=== PATIENT | male | born 1965 | race Caucasian/White ===

== ENCOUNTER 2017-10-29 11:10 | Day surgery (SDC) | payer BC ==
[2017-10-26 15:23] VITALS: BMI 27.8
[~2017-10-29 11:10] MED LIST: LACTATED RINGERS 1,000 ML IV SCH
[2017-10-29 11:28] VITALS: TEMP 98.4
[2017-10-29] MEDS ORDERED: LIDOCAINE 1% 20 ML VIAL (10MG/ML) FOR IV START INTRADERMA ONE (11:33)
[2017-10-29] MEDS ORDERED: PROPOFOL 10 MG/ML 20 ML VIAL IV ONE (11:34)
[2017-10-29] MEDS ORDERED: LIDOCAINE 1% INJ 10MG/ML (20 ML MDV) ONE (11:34)
--- NOTE | 2017-10-29 12:03 | P.PCN ---
Date of Procedure: 10/29/17 Procedure(s) Performed: Procedure: Total colonoscopy and polypectomy. Preoperative diagnosis: Screening for neoplasia. Postoperative diagnosis: 1. Small/Diminutive polyp splenic flexure snared, but no large polyps or cancer. Preparation: HalfLytely prep. Sedation: Was provided by anesthesia. Brief clinical history: The patient is a 52-year-old male who is scheduled for this evaluation for screening for neoplasia age being his risk factor. There is no family history of colon cancer. At this time, he has no abdominal complaints, bleeding or anemia. This would be his first colonoscopy. Procedure: With the patient on his left lateral decubitus position and after informed consent and adequate sedation, the perianal area was inspected and it did not show any fissures or fistulas. There were no masses felt on digital rectal examination. The Olympus CFQ 160L video colonoscope was then inserted in the rectum in the usual fashion and advanced to the cecum. There was a small /diminutive polyp around the splenic flexure which was snared and retrieved by suction but there were no large polyps or cancer. There was no obvious diverticular disease or other pathology. The mucosa appeared healthy. I retroflexed the endoscope in the rectum before the endoscope was withdrawn. The patient tolerated the procedure well. Plan: The patient was reassured. He will follow up with you as planned and I recommended repeat exam in 5 years.
[2017-10-29 12:18] VITALS: BP 117/76; PULSE 73; RESP 18
== END 2017-10-29 12:38 | disposition home or self-care (01) ==
LOC: ORWHC2ENDO 11:10
DX: Z12.11 Encounter for screening for malignant neoplasm of colon (principal); D12.3 Benign neoplasm of transverse colon; K21.9 Gastro-esophageal reflux disease without esophagitis
CPT/HCPCS: 88305; 45385; J2001; J2704

== ENCOUNTER → 2019-06-01 | Outpatient (CLI) | payer BC ==
[2019-06-01 18:03] LABS: Shrimp IgE 0.12 kU/L
[2019-06-01 19:36] LABS: Hepatitis A Antibody IgM Non-Reactive (Non-Reactive); Hepatitis B Core IgM Non-Reactive (Non-Reactive); Hepatitis B Surface Antigen Non-Reactive (Non-Reactive); Hepatitis C IgG Antibody Non-Reactive (Non-Reactive)
[2019-06-02 04:18] LABS: Gliadin AB IgA, Deaminated NEGATIVE (NEGATIVE); Gliadin AB IgA, Unit <0.2 U/mL; Gliadin AB IgG, Deaminated NEGATIVE (NEGATIVE)
[2019-06-02 14:00] LABS: Crab IgE 0.12 kU/L (<0.10); Crab IgE Class CLASS 0/1
[2019-06-02 14:01] LABS: Pork IgE Class CLASS 0
[2019-06-02 14:02] LABS: Beef IgE <0.10 kU/L (<0.10); Beef IgE Class CLASS 0; Salmon IgE <0.10 kU/L (<0.10); Salmon IgE Class CLASS 0
[2019-06-02 14:03] LABS: Gluten IgE Class CLASS 0; Yeast Bakers/Brew IgE 0.12 kU/L (<0.10)
[2019-06-02 14:04] LABS: Chicken IgE Class CLASS 0; Lobster IgE Class CLASS 0/1
[2019-06-02 14:05] LABS: Avocado Class CLASS 0; Banana IgE Class CLASS 0/1; Cow's Milk IgE Class CLASS 0; Egg White IgE <0.10 kU/L (<0.10); Hazelnut IgE <0.10 kU/L (<0.10); Hazelnut IgE Class CLASS 0; Kiwi IgE <0.10 kU/L (<0.10); Kiwi IgE Class CLASS 0; Peanut IgE <0.10 kU/L (<0.10); Potato IgE <0.10 kU/L (<0.10); Potato IgE Class CLASS 0; Soybean IgE <0.10 kU/L (<0.10)
[2019-06-02 14:06] LABS: Coffee IgE <0.10 kU/L (<0.10); Coffee IgE Class CLASS 0; Tea IgE <0.10 kU/L (<0.10)
== END | disposition home or self-care (01) ==
LOC: LABWHC1 10:47
PROVIDERS: ATTEND Nurse Practitioner Family
DX: R10.9 Unspecified abdominal pain (principal); R21 Rash and other nonspecific skin eruption; J30.89 Other allergic rhinitis
CPT/HCPCS: 36415; 80074; 83516; 83520; 85652; 86003; 86038; 86790

== ENCOUNTER 2022-11-13 18:06 | Emergency (ER) | payer BC ==
[2022-11-13 18:28] VITALS: RESP 18; TEMP 98.5
[2022-11-13] MEDS ORDERED: MORPHINE SULFATE 4 MG/ML SYRINGE IV STA (19:13)
[2022-11-13] MEDS ORDERED: SODIUM CHLORIDE 0.9% 1,000 ML IV STA (19:13)
--- NOTE | 2022-11-13 19:14 | ED ---
Fall HPI - General Chief Complaint: Fall Stated Complaint: fall Time Seen by Provider: 11/13/22 18:57 Source: patient, family, RN notes reviewed, old records reviewed Mode of arrival: wheelchair Limitations: no limitations - History of Present Illness Initial Comments: This is a 57-year-old male who presents for evaluation of fall. Patient had a significant fall around 7 feet. Patient fell landing on his feet back neck unsure of loss of consciousness. Patient is complaining of bilateral wrist pain bilateral elbow pain bilateral leg pain ankle pain back pain and pelvis pain. Patient was previously evaluated by primary care sent to the emergency department for further evaluation, no medications for pain control currently MD Complaint: fall -: hour(s) Fall From: from height (distance) (7 ft) When Fall Occurred: 4-6 hours [employer] Fall Witnessed: yes, by bystander Place Fall Occurred: home Loss of Consciousness: none Prolonged Down Time?: no Symptoms Prior to Fall: none Location: head, neck, chest, back, abdomen, pelvis, buttocks Location - Extremities: Left: Elbow, Hand, Knee, Leg, Ankle, Foot, Right: Elbow, Hand, Knee, Leg, Ankle, Foot Severity: severe Severity scale (1-10): 9 Quality: sharp Context: tripped/slipped Associated Symptoms: denies - Related Data Home Medications Medication Instructions Recorded Confirmed Beet Root(Unknown) 1 tab PO DAILY 11/13/22 11/13/22 Cinnamon(Unknown) 1 tab PO DAILY 11/13/22 11/13/22 Jen(Unknown) 1 tab PO DAILY 11/13/22 11/13/22 Vitamin D(Unknown) 1 tab PO DAILY 11/13/22 11/13/22 Allergies Allergy/AdvReac Type Severity Reaction Status Date / Time No Known Allergies Allergy Verified 11/13/22 20:09 Review of Systems ROS Statement: Those systems with pertinent positive or pertinent negative responses have been documented in the HPI. ROS Other: All systems not noted in ROS Statement are negative. Past Medical History Past Medical History: No Reported History History of Any Multi-Drug Resistant Organisms: None Reported Past Surgical History: Hernia Repair Additional Past Surgical History / Comment(s): BILAT ELBOW SX Past Anesthesia/Blood Transfusion Reactions: No Reported Reaction Past Psychological History: No Psychological Hx Reported Smoking Status: Former smoker Past Alcohol Use History: Occasional Past Drug Use History: None Reported - Past Family History Mother Family Medical History: No Reported History General Exam Limitations: no limitations General appearance: alert, in no apparent distress Head exam: Present: atraumatic, normocephalic, normal inspection Eye exam: Present: normal appearance, PERRL, EOMI. Absent: scleral icterus, conjunctival injection, periorbital swelling ENT exam: Present: normal exam, mucous membranes moist Neck exam: Present: normal inspection. Absent: tenderness, meningismus, lymphadenopathy Respiratory exam: Present: normal lung sounds bilaterally. Absent: respiratory distress, wheezes, rales, rhonchi, stridor Cardiovascular Exam: Present: regular rate, normal rhythm, normal heart sounds. Absent: systolic murmur, diastolic murmur, rubs, gallop, clicks GI/Abdominal exam: Present: soft, normal bowel sounds. Absent: distended, tenderness, guarding, rebound, rigid Extremities exam: Present: normal inspection, full ROM, normal capillary refill. Absent: tenderness, pedal edema, joint swelling, calf tenderness Back exam: Present: normal inspection Neurological exam: Present: alert, oriented X3, CN II-XII intact Psychiatric exam: Present: normal affect, normal mood Skin exam: Present: warm, dry, intact, normal color. Absent: rash Course Vital Signs 11/13/22 11/13/22 18:21 22:47 Temperature 98.5 F Pulse Rate 86 79 Respiratory 18 18 Rate Blood Pressure 156/86 149/79 O2 Sat by Pulse 99 98 Oximetry - Reevaluation(s) Reevaluation #1: 11/13/22 19:43 Medical record is reviewed Reevaluation #2: 11/13/22 19:45 Patient has adequate pain control Reevaluation #3: Patient informed results questions answered Reevaluation #4: 11/13/22 19:51 Was pt. sent in by a medical professional or institution? @ -Is patient was sent in by his primary care we received x-ray was concern for rib fracture or possible back fracture Did you speak to anyone other than the patient for history? @ -no Did you review nursing and triage notes? @ -agree Were old charts reviewed? @ -no Differential Diagnosis? @ -prior EKG interpreted by me (3pts min.)? @ -no X-rays interpreted by me (1pt min.)? @ -yes CT interpreted by me (1pt min.)? @ -no U/S interpreted by me (1pt. min.)? @ -no What testing was considered but not performed? (CT, X-rays, U/S, labs)? Why? @ -no What meds were considered but not given? Why? @ -no Did you discuss the management of the patient with other professionals? @ -no Did you reconcile home meds? @ -no Was smoking cessation discussed for >3mins.? @ -no Was critical care preformed (if so, how long)? @ -no Were there social determinants of health that impacted care today? How? (Homelessness, low income, unemployed, alcoholism, drug addiction, transportation, low edu. Level, literacy, decrease access to med. care, longterm, rehab)? @ -no Was there de-escalation of care discussed even if they declined? (Discuss DNR or withdrawal of care, Hospice)? @ -no What co-morbidities impacted this encounter? (DM, HTN, Smoking, COPD, CAD, Cancer, CVA, Hep., AIDS, mental health diagnosis, sleep apnea, morbid obesity)? @ -none Was patient admitted / discharged? @ -57 male to the ER today after fall fall off of a ladder, patient was on a ladder about 7 feet up when he gave way, he fell down landing on his back chest arms and wrists and ankles Discharged Undiagnosed new problem with uncertain prognosis? @ -no Drug Therapy requiring intensive monitoring for toxicity (Heparin, Nitro, Insulin, Cardizem)? @ -no Were any procedures done? @ -Yes shoulder reduction and conscious sedation Diagnosis/symptom? @ -Fall from significant height resulting in multiple contusions and pain Acute, or Chronic, or Acute on Chronic? @ -Acute Uncomplicated (without systemic symptoms) or Complicated (systemic symptoms)? @ -uncomplicated Side effects of treatment? @ -no Exacerbation, Progression, or Severe Exacerbation] @ -no Poses a threat to life or bodily function? @ -yes secondary to submerge somatic injury Medical Decision Making - Medical Decision Making 57 male to the emergency department ER after fall off ladder. Significant fall could result in significant trauma patient has no significant medical injury noted pain is well-controlled and patient can be discharged home - Lab Data Result diagrams: 11/13/22 22:12 11/13/22 22:12 Lab Results 11/13/22 11/13/22 11/13/22 Range/Units 22:12 22:12 22:12 WBC 9.3 (3.8-10.6) k/uL RBC 4.63 (4.30-5.90) m/uL Hgb 14.9 (13.0-17.5) gm/dL Hct 43.4 (39.0-53.0) % MCV 93.8 (80.0-100.0) fL MCH 32.1 (25.0-35.0) pg MCHC 34.2 (31.0-37.0) g/dL RDW 13.2 (11.5-15.5) % Plt Count 271 (150-450) k/uL MPV 7.3 Neutrophils % 63 % Lymphocytes % 23 % Monocytes % 8 % Eosinophils % 3 % Basophils % 1 % Neutrophils # 5.9 (1.3-7.7) k/uL Lymphocytes # 2.1 (1.0-4.8) k/uL Monocytes # 0.7 (0-1.0) k/uL Eosinophils # 0.3 (0-0.7) k/uL Basophils # 0.1 (0-0.2) k/uL PT 11.5 (9.0-12.0) sec INR 1.1 (<1.2) APTT 22.9 (22.0-30.0) sec Sodium 139 (137-145) mmol/L Potassium 4.1 (3.5-5.1) mmol/L Chloride 105 (98-107) mmol/L Carbon Dioxide 24 (22-30) mmol/L Anion Gap 10 mmol/L BUN 16 (9-20) mg/dL Creatinine 0.91 (0.66-1.25) mg/dL Est GFR (CKD-EPI)AfAm >90 (>60 ml/min/1.73 sqM) Est GFR (CKD-EPI)NonAf >90 (>60 ml/min/1.73 sqM) Glucose 120 H (74-99) mg/dL Calcium 9.0 (8.4-10.2) mg/dL Phosphorus 4.3 (2.5-4.5) mg/dL Magnesium 2.0 (1.6-2.3) mg/dL Total Bilirubin 0.9 (0.2-1.3) mg/dL AST 34 (17-59) U/L ALT 27 (4-49) U/L Alkaline Phosphatase 73 (38-126) U/L Total Protein 6.3 (6.3-8.2) g/dL Albumin 4.0 (3.5-5.0) g/dL Serum Alcohol <10 mg/dL - Radiology Data Radiology results: report reviewed (CT brain C-spine chest and pelvis and back as well as x-rays of labs bilaterally are negative for significant acute traumatic injury), image reviewed Disposition Clinical Impression: Fall, Back contusion Disposition: HOME SELF-CARE Condition: Good Instructions (If sedation given, give patient instructions): Contusion in Adults (ED) Is patient prescribed a controlled substance at d/c from ED?: No Referrals: Erick Arriaga DO [Primary Care Provider] - 1-2 days Time of Disposition: 22:00
--- NOTE | 2022-11-13 20:26 | XR ---
EXAMINATION TYPE: XR elbow complete bilateral DATE OF EXAM: 11/13/2022 COMPARISON: None HISTORY: Fall, pain TECHNIQUE: Bilateral elbows 3 views each FINDINGS: Right elbow: Radius aligns normally with the humerus. Anterior fat pad is normal. No elevat ion of posterior fat pad is evident. Degenerative joint changes are at the humeral ulnar junction. Left elbow: Radius aligns normally with the humerus no anterior fat pad elevation is evident. No post erior fat pad elevation is evident. Some soft tissue swelling over the proximal ulna may be present o n the lateral view. Degenerative joint changes are noted. Bilateral elbows: No acute fractures are identified. Follow up exams can be performed 7-10 days from acute trauma for continued pain. IMPRESSION: 1. No acute osseous abnormality bilateral elbows. 2. Soft tissue swelling proximal dorsal left elbow
--- NOTE | 2022-11-13 20:28 | XR ---
EXAMINATION TYPE: XR wrist complete BILATERAL DATE OF EXAM: 11/13/2022 COMPARISON: None HISTORY: Fall, pain TECHNIQUE: Bilateral wrists examined 4 views each FINDINGS: No acute fracture or dislocation is evident. Joint spaces are preserved. Soft tissues are n ormal. There is pain at the anatomic snuff box, nuclear medicine bone scan could be performed for additional evaluation. Follow up exams can be performed 7-10 days from acute trauma for continued pain IMPRESSION: 1. No acute osseous abnormality bilateral wrists
--- NOTE | 2022-11-13 20:30 | XR ---
EXAMINATION TYPE: XR ankle complete bilateral DATE OF EXAM: 11/13/2022 COMPARISON: None HISTORY: Fall, pain TECHNIQUE: Three-view bilateral ankles FINDINGS: Ankle mortise are intact. Soft tissues are normal. No acute fractures or dislocations are e vident. Achilles tendon calcaneal heel spurs are present bilaterally. IMPRESSION: 1. No acute osseous abnormalities bilateral ankles. 2. Bilateral Achilles tendon calcaneal heel spurs.
--- NOTE | 2022-11-13 20:31 | XR ---
EXAMINATION TYPE: XR knee complete bilateral DATE OF EXAM: 11/13/2022 COMPARISON: None HISTORY: Fall, pain TECHNIQUE: Bilateral knees examined in 3 projections each FINDINGS: Joint spaces appear preserved. No acute fracture or dislocation is evident. Anterior superi or patellar spurs are present bilaterally. No joint effusions are evident. Follow up exams can be performed 7-10 days from acute trauma for continued pain. IMPRESSION: 1. No acute osseous abnormalities bilateral knees.
--- NOTE | 2022-11-13 21:12 | CT ---
EXAMINATION TYPE: CT brain ayaka wo con DATE OF EXAM: 11/13/2022 COMPARISON: None HISTORY: pain after fall CT DLP: 3370.5 (combined) mGycm, Automated exposure control for dose reduction was used. CONTRAST: Patient injected with 0 mL of Isovue 300. CT of the brain is performed utilizing 3 mm thick sections through the posterior fossa and 3 mm thick sections through the remaining calvarium. Study is performed within 24 hours of arrival to the hospital. No abnormal hyperdensity is present to suggest an acute intracranial hemorrhage. No mass lesion is evident. No acute infarcts are evident. Ventricles and sulci are appropriate for the patient age. Thecal sac thickening is within the ethmoid air cells. Remaining paranasal sinuses and mastoid air ce lls are clear. IMPRESSIONS: 1. No acute intracranial process radiographically apparent. Follow-up MRI can be performed as clinica lly indicated. CT cervical spine. COMPARISON: None CT of the cervical spine is performed in the axial plane at 2 mm thick sections. Reconstructed image s in the coronal, and sagittal plane are reviewed on the computer. No acute fractures are evident. Vertebral body alignment is normal. Disc heights are preserved. Vertebral body heights are preserved. No spinal canal stenosis is evident. No neural foraminal stenosis is evident. IMPRESSIONS: 1. No acute osseous abnormality cervical spine.
--- NOTE | 2022-11-13 21:51 | CT ---
EXAMINATION TYPE: CT ChestAbdPelvis w con DATE OF EXAM: 11/13/2022 INDICATION: pain after fall COMPARISON: None CT DLP: 3370.5 (combined) mGycm CONTRAST: Performed without Oral Contrast and with IV Contrast, patient injected with 100ml mL of Isovue 300. TECHNIQUE: Axial images at 5 mm thick sections. Reconstructed images in the coronal plane. Delayed images through the kidneys. FINDINGS: CT CHEST: Portion of the thyroid visualized is normal. No suspicious lung nodules or focal infiltrates are present. No enlarged mediastinal or hilar adenopathy is evident. The ascending aorta diameter at the level of the main pulmonary artery is 3.3 cm. The main pulmonary artery diameter at the bifurcation is 3.[address] ABDOMEN: Liver: Normal Spleen: Normal Pancreas: Normal Adrenal glands: The adrenal glands are normal. Gallbladder: Normal Kidneys: No masses are evident. No hydronephrosis is present. No cysts are present. Delayed images were obtained through the kidneys, which remain unremarkable. Aorta: Normal Inferior vena cava: Normal. CT PELVIS: Loops of bowel within the abdomen and pelvis are normal. The study is lateral contrast limiting b owel evaluation. Appendix: Normal as visualized. Urinary bladder: Normal. Genitourinary structures: Prostate is normal Osseous structures: No suspicious lytic or sclerotic lesions. No acute fractures are identified. IMPRESSIONS: 1. No acute posttraumatic change is evident. Follow-up can be performed as clinically indicated
--- NOTE | 2022-11-13 21:55 | CT ---
EXAMINATION TYPE: CT lumbar spine w con DATE OF EXAM: 11/13/2022 COMPARISON: HISTORY: pain after fall. CT DLP: 3370.5 (combined) mGycm CONTRAST: CT scan of the lumbar is performed with IV Contrast, patient injected with 100ml mL of Isovue 300. TECHNIQUE: CT of the lumbar spine is performed on a spiral scan at 3 mm thick sections. Reconstructed images are performed in the coronal and sagittal planes. FINDINGS: L2-3: Mild disc bulge is present with anterior thecal sac contact. No AP spinal canal stenosis is pre sent. Neural foramen appear patent. L3-4: Mild disc bulge with anterior thecal sac contact. Facet hypertrophy is present. No spinal canal stenosis or neural foraminal stenosis is present. L4-5: Mild disc bulge is present with mild anterior thecal sac compression. Facet hypertrophy and lig amentum flavum laxity is present. Some mild spinal canal narrowing may be present. Remainder of the visualized lumbar spine Vertebral body alignment is preserved. Disc heights are pres erved. No suspicious focal disc herniation or significant disc bulge is evident. No spinal canal sten osis is present. Follow-up MRI can be performed as clinically indicated. IMPRESSION: 1. Mild disc bulging L2-3, L3-4, and L4-5. 2. Facet hypertrophy at L3-4 L4-5. 3. Mild canal narrowing at the L5-4-5 level.
[2022-11-13] MEDS ORDERED: ACET/COD 300 MG/30 MG STARTER PACK 6 TAB BTL PO STA (22:10)
[2022-11-13] MEDS ORDERED: IBUPROFEN 600 MG STARTER PACK 4 TAB BTL PO STA (22:10)
[2022-11-13 22:28] LABS: Basophils # (A) 0.1 k/uL (0-0.2); Basophils % (A) 1 %; Eosinophils # (A) 0.3 k/uL (0-0.7); Eosinophils % (A) 3 %; HCT 43.4 % (39.0-53.0); HGB 14.9 gm/dL (13.0-17.5); Lymphocytes # (A) 2.1 k/uL (1.0-4.8); Lymphocytes % (A) 23 %; MCH 32.1 pg (25.0-35.0); MCHC 34.2 g/dL (31.0-37.0); MCV 93.8 fL (80.0-100.0); Mean Platelet Volume 7.3; Monocytes # (A) 0.7 k/uL (0-1.0); Monocytes % (A) 8 %; Neutrophils # (A) 5.9 k/uL (1.3-7.7); Neutrophils % (A) 63 %; Platelet Count 271 k/uL (150-450); RBC 4.63 m/uL (4.30-5.90); RDW 13.2 % (11.5-15.5); WBC 9.3 k/uL (3.8-10.6)
[2022-11-13 22:36] LABS: INR 1.1 (<1.2); Partial Thromboplastin Time 22.9 sec (22.0-30.0); Prothrombin Time 11.5 sec (9.0-12.0)
[2022-11-13 22:37] LABS: ALT 27 U/L (4-49); African American GFR (CKD) >90 (>60 ml/min/1.73 sqM); Alcohol <10 mg/dL; Anion Gap 10 mmol/L; Blood Urea Nitrogen 16 mg/dL (9-20); Carbon Dioxide 24 mmol/L (22-30); Chloride 105 mmol/L (98-107); Glucose 120 mg/dL (74-99); Non-African American GFR(CKD) >90 (>60 ml/min/1.73 sqM); Phosphorus 4.3 mg/dL (2.5-4.5); Sodium 139 mmol/L (137-145); Total Bilirubin 0.9 mg/dL (0.2-1.3); Total Protein 6.3 g/dL (6.3-8.2)
[2022-11-13 22:44] LABS: AST 34 U/L (17-59); Alkaline Phosphatase 73 U/L (38-126); Potassium 4.1 mmol/L (3.5-5.1)
[2022-11-13 22:48] VITALS: BP 149/79; PULSE 79
== END 2022-11-13 22:48 | disposition home or self-care (01) ==
LOC: EC 18:06
DX: S30.0XXA Contusion of lower back and pelvis, initial encounter (principal); Z87.891 Personal history of nicotine dependence; W18.30XA Fall on same level, unspecified, initial encounter
CPT/HCPCS: 36415; 80053; 83735; 84100; 85025; 85610; 85730; 80320; 73562; 73110; 73610; 73080; 72125; 72132; 70450; 71260; 74177; 99284; 96374; J2270; Q9967

== ENCOUNTER → 2022-11-13 | Outpatient (CLI) | payer BC ==
--- NOTE | 2022-11-14 09:17 | XR ---
EXAMINATION TYPE: XR elbow complete LT DATE OF EXAM: 11/13/2022 CLINICAL HISTORY: [id number] LBP,PAIN LT FOOT/ELBOW TECHNIQUE: Frontal, lateral and oblique images of the left elbow are obtained. COMPARISON: Prior left elbow x-ray August 18, 2011 FINDINGS: There is no acute fracture/dislocation evident in the left elbow. No abnormal fat pad sig ns are seen currently. The overlying soft tissue appears unremarkable. IMPRESSION: As above.
--- NOTE | 2022-11-15 14:24 | XR ---
EXAMINATION TYPE: XR foot complete LT DATE OF EXAM: 11/13/2022 CLINICAL HISTORY: [id number] LBP,PAIN LT FOOT/ELBOW TECHNIQUE: Frontal, lateral, and oblique images of the left foot are obtained. COMPARISON: None FINDINGS: There is no acute fracture/dislocation evident in the left foot. There is mild to moderate narrowing and mild spurring at the first metatarsophalangeal joint. There is some curvilinear calcif ication or ossification distal Achilles tendon right before calcaneal insertion. The overlying soft tissue appears unremarkable. IMPRESSION: As above.
--- NOTE | 2022-11-15 14:25 | XR ---
EXAMINATION TYPE: XR lumbosacral spine min 4V DATE OF EXAM: 11/13/2022 CLINICAL HISTORY: Pain. TECHNIQUE: Frontal, lateral, and oblique images of the lumbar spine are obtained. COMPARISON: None. FINDINGS: There are 5 lumbar type vertebral bodies identified. The lumbar spine shows satisfactory alignment without evidence of acute fracture or dislocation. Vertebral body heights and disk space he ights are within normal limits. Mild multilevel anterior and lateral spurring is seen. The oblique images appear within normal limits. The overlying soft tissue appears unremarkable. IMPRESSION: As above.
== END | disposition home or self-care (01) ==
LOC: RADXRYALE 16:58
PROVIDERS: ATTEND Physician Assistant
DX: M54.59 Other low back pain (principal); M79.672 Pain in left foot; M25.522 Pain in left elbow
CPT/HCPCS: 72110